=== PATIENT | male | born 1975 | race Hispanic/Latino ===

== ENCOUNTER 2021-04-22 19:41 | Emergency (ER) | payer OTHER ==
[~2021-04-22] VITALS: Ht 167.6 cm; Wt 78.5 kg
[2021-04-22 19:43] VITALS: BP 130/88
[2021-04-22] MEDS ORDERED: ACET-66 PO (21:41)
[2021-04-22] MEDS ORDERED: AMOX-429 PO (21:41)
[2021-04-22] MEDS ORDERED: IBUP-2070 PO (21:41)
[2021-04-22] MEDS ORDERED: AMOX/CLAV 875/125MG TAB PO ONE (22:00)
[2021-04-22] MEDS ORDERED: ACETAMINOPHEN 500 MG TABLET PO ONE (22:00)
[2021-04-22] MEDS ORDERED: IBUPROFEN 600 MG TABLET PO ONE (22:00)
== END 2021-04-22 22:29 | disposition home or self-care (01) ==
LOC: EDH 19:41
DX: K02.9 Dental caries, unspecified (principal); K08.89 Other specified disorders of teeth and supporting structures; K21.9 Gastro-esophageal reflux disease without esophagitis